=== PATIENT | male | born 1990 | race Caucasian/White ===

== ENCOUNTER → 2019-01-21 15:19 | Outpatient (CLI) | payer OTHER, SELFPAY ==
--- NOTE | 2019-01-21 15:31 | XR_ITS ---
PROCEDURE: XR TIBIA FIBULA RT 2V CLINICAL INDICATION: SUBPERIOSTEAL HEMATOMA, pain COMPARISON: No exams were available for comparison FINDINGS: No fracture or dislocation. A BB is placed along palpable abnormality along the medial aspect of the lower leg. No soft tissue calcification or foreign body or other significant anomaly evident IMPRESSION: Negative right tib fib Dictated by: Arsenio Klein MD 01/21/2019 16:49 Signed by: <Electronically signed by Arsenio Klein MD in [place]> 01/21/2019 16:49
== END ==
PROVIDERS: PCP Family Medicine; Visit Provider Family Medicine
DX: T14.8XXA Other injury of unspecified body region, initial encounter (principal); S80.11XA Contusion of right lower leg, initial encounter
CPT/HCPCS: 73590